=== PATIENT | female | born 1975 | race Caucasian/White ===

== ENCOUNTER → 2020-11-24 | Outpatient (CLI) | payer OTHER ==
[~2020-11-24] MED LIST: BENTYL 20MG TAB20 MG PO; LODINE CAP 300300 MG PO; REGLAN10 MG PO
== END ==
LOC: SLEEP 13:07
DX: G47.33 Obstructive sleep apnea (adult) (pediatric) (principal); Z86.69 Personal history of other diseases of the nervous system and sense organs; Z86.16 Personal history of COVID-19; E66.01 Morbid (severe) obesity due to excess calories
CPT/HCPCS: 95811